=== PATIENT | female | born 1990 | race Caucasian/White ===

== ENCOUNTER → 2018-03-28 12:51 | Outpatient (CLI) | payer MEDICAID, SELFPAY ==
--- NOTE | 2018-03-28 13:30 | SATEXT_ITS ---
Assessment: Demi presents for nutritional counseling for weight management nutrition therapy in preparation for bariatric surgery at [facility]. She demonstrates that she is very motivated to complete the program and verbalizes that this procedure is a tool to her life long commitment to being healthy and maintaining a healthy weight. She reports a history of losing weight and not being able to keep it off despite working very hard with physical activity and caloric restriction. Currently she is eating a well balanced eating plan, but she does admit to having more difficulty getting enough vegetables versus fruits. Breakfast is cereal and a fruit or Serbian muffin and a fruit. Lunch is a sandwich, yogurt, fruit, granola bar. Dinner is protein, grain, vegetable and fruit. She drinks mostly water and seltzer. She states she drinks 32 oz of water daily. 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 She also has her ADLs which includes two young children as well. She is not doing any additional intentional exercise at this time. She is 67 [address] scale today. Her BMI is 48.5 kg/m2. Nutritional Diagnosis: Class 3 obesity as evidenced by BMI of 48.5 kg/m2. Intervention: Acknowledged her frustration with eating moderately sized meals and not being able to lose weight and/or gaining weight at times. We discussed possible physiologic reasons for weight gain Provided some ideas of where Demi could add more veggies in her day which would actually reduce her intake of other foods. Outlined some ideas for action plans towards Demi's goal of weight loss and preparation for bariatric surgery to help get her started with the idea of action planning. She developed the following: Monitoring and Evaluation: 1. Demi will increase her water to intake to 48 oz. per day. 2. Demi will add more vegetables to her day. 3. Will monitor her progress with her action plans. 4. Will monitor her weight and PO intake monthly. Will evaluate her nutrition care plan and adjust as needed. Thank you for the referral.
== END ==
PROVIDERS: Visit Provider Dietitian, Registered
DX: E66.01 Morbid (severe) obesity due to excess calories (principal); Z68.43 Body mass index [BMI] 50.0-59.9, adult; Z71.3 Dietary counseling and surveillance
CPT/HCPCS: 97802

== ENCOUNTER 2018-05-03 11:58 | Outpatient (CLI) | payer MEDICAID, SELFPAY ==
--- NOTE | 2018-05-03 16:00 | NS.NUTBLAN_ITS ---
Demi returns weight management nutrition therapy in preparation for bariatric surgery. She continues to demonstrate a high motivation to follow through with the program and to commit to a lifestyle of weight management. Demi increased her vegetable intake as per her action plans at her last visit. She is preparing her foods in advance. She also reports that she is eating less because of her increased vegetable intake. Demi would like to continue with this action plan and continue to improve on her water intake. Her physical activity includes her ADLs and school has started so her job is more physically active. She is 67 and 317.2 lbs. Her BMI is 48.2 kg/m2. Will continue to monitor PO intake and will evaluate progress on action plans. Will adjust nutrition care plan as needed.
== END 2018-05-03 12:18 ==
PROVIDERS: Visit Provider Dietitian, Registered
DX: E66.2 Morbid (severe) obesity with alveolar hypoventilation (principal); Z68.42 Body mass index [BMI] 45.0-49.9, adult; Z71.3 Dietary counseling and surveillance
CPT/HCPCS: 97803

== ENCOUNTER 2018-05-21 17:40 | Outpatient (REF) | payer MEDICAID, SELFPAY ==
--- NOTE | 2018-05-21 16:00 | PAPFT_PTH ---
PATIENT: Demi Quiñones LOC: [facility] U#:[id number] AGE/SX: 28/F ROOM: RE05/21/[address]: Latesha Cuba APRN : 1990 BED: DIS: 05/21/2018 SPEC #: [id number] RECD: 05/21/18 18:09 STATUS: ARABELLA RERuth #: [id number] WINDY: 05/21/18 16:[address]: Latesha Cuba DEPT: [facility] Cytology RECD BY: Sigrid Torres Tissues: 1 - CX/ENDOCX FOR PAP SMEARS Procedures: PAP THIN PREP/UVM Screening HPV DNA PROBE Comments: [id number]
== END 2018-05-21 18:00 ==
LOC: LBN 17:40
DX: Z12.4 Encounter for screening for malignant neoplasm of cervix (principal); Z11.51 Encounter for screening for human papillomavirus (HPV)
CPT/HCPCS: 88142; 87624

== ENCOUNTER 2018-05-28 16:04 | Outpatient (CLI) | payer MEDICAID, SELFPAY ==
--- NOTE | 2018-05-28 16:00 | NS.NUTBLAN_ITS ---
Demi returns for weight management nutrition therapy in preparation for bariatric surgery. She continues to maintain a lifestyle of weight management. She prepares her food in advance for school, she eats meals at a table with her family, she takes measured portions of foods. She continues to drink primarily water. 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 She is 67 and 319.1 kg. Her BMI is 48.5 kg/m2. Follow up per [facility].
== END 2018-05-28 16:24 ==
PROVIDERS: Visit Provider Dietitian, Registered
DX: E66.8 Other obesity (principal); Z68.42 Body mass index [BMI] 45.0-49.9, adult; Z71.3 Dietary counseling and surveillance
CPT/HCPCS: 97803

== ENCOUNTER 2018-06-26 12:15 | Outpatient (REF) | payer MEDICAID, SELFPAY ==
[2018-06-27 14:27] LABS: Chlamydia Result Negative; GC Result Negative; Specimen Description URINE
== END 2018-06-26 12:35 ==
LOC: LBN 12:15
PROVIDERS: Visit Provider Nurse Practitioner Women's Health
DX: Z11.3 Encounter for screening for infections with a predominantly sexual mode of transmission (principal)
CPT/HCPCS: 87491; 87591

== ENCOUNTER 2018-09-12 19:31 | Outpatient (REF) | payer MEDICAID, SELFPAY ==
[2018-09-14 10:38] LABS: Influenza B RNA Result Negative; RSV RNA Result Negative; Specimen Description NASAL
[2018-09-16 08:41] LABS: Influenza A RNA Result POSITIVE
== END 2018-09-12 19:51 ==
LOC: LBN 19:31
DX: J02.9 Acute pharyngitis, unspecified (principal); J11.1 Influenza due to unidentified influenza virus with other respiratory manifestations
CPT/HCPCS: 87449; 87631

== ENCOUNTER 2019-07-20 03:39 | Emergency (ER) | payer MEDICAID, SELFPAY ==
[2019-07-20] VITALS (8 sets, daily range): BP systolic 105–157; BP diastolic 48–68; PULSE 50–74; RESP 16–116; TEMP 35.4–36.9; O2SAT 98–99
--- NOTE | 2019-07-20 03:49 | ED.GENADUL_ITS ---
Discharge Plan Disposition Patient Disposition: HOME Condition: Good Discharge Details Chief Complaint: Nk/Back Pain Clinical Impression: Lumbago Primary Care Provider: Latesha Cuba ED Provider: Justin Pfeiffer Home Meds and New Rx's Prescriptions: New cyclobenzaprine 10 mg tablet 10 mg PO TID Qty: 14 RF: 0 acetaminophen [Mapap Extra Strength] 500 MG tablet 1,000 mg PO Q6H 5 Days Qty: 60 RF: 0 lidocaine [Lidoderm] 1 PATCH patch 1 patch Topical Q24H Qty: 4 RF: 0 No Action omeprazole 20 mg capsule,delayed release(DR/EC) 20 mg PO DAILY RF: 0 ursodiol [Actigall] 300 mg capsule 300 mg PO BID Qty: 60 RF: 6 Nexplanon 68 mg implant 1 implant SBD ONCE Qty: 1 RF: 0 multivitamin with iron tablet 1 tab PO DAILY RF: 0 cholecalciferol (vitamin D3) 2,000 unit capsule 2,000 unit PO DAILY RF: 0 mecobalamin (vitamin B12) 1,000 mcg tablet,disintegrating 1,000 mcg SL DAILY RF: 0 valacyclovir 500 MG tablet 500 mg PO BID Qty: 16 RF: 2 venlafaxine 150 mg capsule,extended release 24hr 150 mg PO DAILY Qty: 90 RF: 3 venlafaxine 75 mg capsule,extended release 24hr 75 mg PO DAILY Qty: 90 RF: 3 fluconazole [Diflucan] 150 mg tablet 150 mg PO ONCE Qty: 1 RF: 0 Discharge Instructions Instructions: Low Back Strain (ED) Additional Instructions: At this time your symptoms are secondary to a low back strain. The steroid that was given will last 2 to 3 days. Please take Tylenol, a maximum of 1000 mg every 6 hours, Flexeril as a muscle relaxant to help with the spasms, and the Lidoderm patches as directed. If your insurance does not cover the prescription 5% Lidoderm patch, you can get [id number] 4% Lidoderm patches fairly inexpensively. Please use a heating pad as frequently as possible, avoid lifting anything greater than 5 pounds for the next 1 to 2 weeks. Perform daily stretches. If you notice any worsening of your symptoms, or any new symptoms s uch as vomiting, diarrhea, fever, chills, shortness of breath, chest pain, numbness or tingling in the groin, bowel or bladder incontinence, numbness, weakness, or fainting , please return immediately to the emergency department for reevaluation. Please follow up with your primary care provider as soon as possible for reassessment and reevaluation. As always, it was a pleasure participating in your medical care today. Referrals: Latesha Cuba NP [Primary Care Provider] - Medical Decision Making This is a 29-year-old female who presents today for evaluation of back pain. Yesterday she was doing some bending and working, and had mild back soreness, then this morning/evening while sleeping she twisted during the night and had significant spasm down her left back. She denies any numbness tingling or weakness. She demonstrates no signs of bowel or bladder incontinence, she has normal rectal tone and good perirectal sensation. Reflexes are normal, good dorsiflexion of great toe. No midline spinal tenderness. No history of IV or illicit drug use, or fever chills. Signs and symptoms appear clinically consistent with musculoskeletal spasm of the back. We will treat the patient's spasm and pain, no current clinical indication for imaging at this time. No current clinical evidence of cauda equina syndrome. Will reassess after medication administration. 6 AM Patient is feeling much better, symptoms have notably improved after muscle relaxants. Signs and symptoms are clinically consistent with musculoskeletal back sprain. Recommend Lidoderm patches, Tylenol at home, Flexeril as needed. And heating pad. Discussed red flags for which to return. I have extensively reviewed the treatment plan and discharge instructions with the patient. I have addressed all patient concerns at this time. The patient was made aware of what symptoms to monitor for that would warrant a return to the emergency department. Discussed the plan with the patient, they demonstrate verbal understanding and agreement with our assessment and plan at this time. HPI General Date/Time Provider Initiated Documentation: 07/20/19 03:40 . HPI Narrative: This is a 29-year-old female with a past medical history of chronic back pain, depression, previous gastric bypass, herpes, who presents today for evaluation of back pain. She states that 2 days ago she been doing some lifting and a significant amount of bending over, she had mild back soreness since then, then this evening while she is sleeping she turned and felt a significant spasm in her back and notable increase in her pain. Pain is primarily on the left- hand side but does radiate to the right somewhat. She admits to mild burning sensation to the lateral aspects of her thighs bilaterally. She denies any numbness, tingling, bowel or bladder incontinence. She has no other complaints at this time. She denies any weakness to her lower extremities. She denies any other illicit drug use, fever or chills. Symptoms are made worse with bending and moving, improved by nothing. She did take Tylenol yesterday but this did not change anything. Related Data Home Medications Medication Instructions Recorded Confirmed valacyclovir 500 mg PO BID #16 tab-cap 05/30/17 12/23/18 etonogestrel 68 mg subdermal 1 implant SBD ONCE #1 each 06/26/18 12/23/18 implant omeprazole 20 mg capsule,delayed 20 mg PO DAILY 08/28/18 12/23/18 release ursodiol 300 mg capsule 300 mg PO BID #60 cap 08/28/18 12/23/18 cholecalciferol (vitamin D3) 50 2,000 unit PO DAILY 11/04/18 12/23/18 mcg (2,000 unit) capsule mecobalamin (vitamin B12) 1,000 1,000 mcg SL DAILY 11/04/18 12/23/18 mcg disintegrating tablet,sublingual multivitamin with iron 1 tab PO DAILY 11/04/18 12/23/18 venlafaxine 150 mg 150 mg PO DAILY #90 cap 12/24/18 capsule,extended release 24 hr fluconazole 150 mg tablet 150 mg PO ONCE #1 tab 04/17/19 venlafaxine 75 mg capsule,extended 75 mg PO DAILY #90 cap 04/17/19 release 24 hr acetaminophen [Mapap Extra 1,000 mg PO Q6H 5 Days #60 tab 07/20/19 Strength] cyclobenzaprine 10 mg PO TID #14 tab 07/20/19 lidocaine [Lidoderm] 1 patch TOPICAL Q24H #4 patch 07/20/19 Previous Rx's Medication Instructions Recorded valacyclovir 500 mg PO BID #16 tab-cap 05/30/17 etonogestrel 68 mg subdermal 1 implant SBD ONCE #1 each 06/26/18 implant ursodiol 300 mg capsule 300 mg PO BID #60 cap 08/28/18 venlafaxine 150 mg 150 mg PO DAILY #90 cap 12/24/18 capsule,extended release 24 hr fluconazole 150 mg tablet 150 mg PO ONCE #1 tab 04/17/19 venlafaxine 75 mg capsule,extended 75 mg PO DAILY #90 cap 04/17/19 release 24 hr acetaminophen [Mapap Extra 1,000 mg PO Q6H 5 Days #60 tab 07/20/19 Strength] cyclobenzaprine 10 mg PO TID #14 tab 07/20/19 lidocaine [Lidoderm] 1 patch TOPICAL Q24H #4 patch 07/20/19 Allergies Allergy/AdvReac Type Severity Reaction Status Date / Time sumatriptan Allergy Severe THROAT Verified 12/23/18 15:41 CLOSES UP Penicillins Allergy Intermediate Rash Verified 12/23/18 15:41 Everywhere Review of Systems All systems reviewed & are unremarkable except as noted in HPI and below PFSH Social History Smoking/Tobacco Use Status: Never Alcohol Intake: never Drug use: Never Substance use type: does not use Household members: other Details: 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 Pets and animals: No What type of physical activity do you participate in: walking and swimming Duration: 30-45 minutes/day Frequency: 1-2 times per week Batool/Anabaptist: No preference Special batool needs: No Seatbelt use: always Do you feel safe at home: Yes Do you feel safe in your relationship?: Yes Female Reproductive History Menstrual control method: implanted (Nexplanon inserted by Charla Medina NP [id number] EXP=10/2020) History History 2 Para 2 Hx # Term Pregnancies Multiple births Hx # Pregnancies Ectopic pregnancies AB induced Hx Number of Living Children AB spontaneous Exam Narrative Exam Narrative: 1.Const: Well-nourished, Well-developed, appearing stated age 2.Eyes: PERRL, no conjunctival injection, and symmetrical lids. 3.ENT: Atraumatic external nose and ears. Moist MM. Neck: Symmetric, trachea midline, No thyromegaly. 4.CVS: +S1/S2, No murmurs or gallops. Peripheral pulses 2+ and equal in all extremities. Brisk capillary refill in all extremities. 5.RESP: Unlabored respiratory effort. Clear to auscultation bilaterally. No wheezes rales or rhonchi 6.GI: Soft, Nontender/Nondistended, No hepatosplenomegaly. No guarding or rebound. 7.MSK: Normocephalic/Atraumatic, Extremities w/o deformity or ttp No cyanosis or clubbing, Normal movement of all extremities. No midline tenderness to palpation over the CTLS spine. She does have mild reproducible tenderness and spasm on the left paraspinal space in the lower lumbar region. Normal ROM in flexion, extension, side bend, and rotation. Patient has +5 out of 5 strength in the lower extremities in dorsiflexion and plantarflexion, knee flexion and extension, hip flexion and extension. Normal strength for dorsiflexion and plantar flexion of the great toe bilaterally. There is +2 over 2 dorsalis pedis pulses bilaterally. There is normal sensation to the skin with light touch at the foot, knee, and hip. Normal saddle sensation. Good sensation over the deep sural nerve area bilaterally. Rectal exam demonstrates normal rectal tone. Reflexes are +2 over 4 in the patellar reflex bilaterally. +5 out of 5 strength in the medial, ulnar, radial nerve distribution bilaterally in the hands as well as intact light touch sensation to these dermatomes on the hands 8.Skin: Warm, Dry. No rashes or lesions. 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 Sensation grossly intact, no focal neurol ogic deficits. 10.Psych: (AAO) x3. Appropriate mood and affect
[2019-07-20] MEDS: Acetaminophen 500 MG TAB 1000 MG PO (04:09)
[2019-07-20] MEDS: Cyclobenzaprine 10 MG TAB PO (04:10)
[2019-07-20] MEDS: Ketorolac 30 MG/ML VIAL IM (04:11)
[2019-07-20] MEDS: Lidocaine 5% Patch 1 PATCH TP (04:13)
[2019-07-20] MEDS: methylPREDNISolone SUCC 125 MG VIAL IM (04:15)
[2019-07-20] MEDS: diazePAM 10 MG/2 ML SYR 5 MG IVP (05:20)
--- NOTE | 2019-07-20 05:25 | NUR.NOTE ---
Nursing Note: Pt was still in a large amount of pain. 20g placed to L AC, and Valium 5mg given IVP over 2 min. Pt tolerated injection well. Will continue to monitor pts status.
== END 2019-07-20 06:55 | disposition home or self-care (01) ==
PROVIDERS: Emergency Provider Student in an Organized Health Care Education/Training Program
DX: S39.012A Strain of muscle, fascia and tendon of lower back, initial encounter (principal); X50.3XXA Overexertion from repetitive movements, initial encounter
CPT/HCPCS: 96372; 96374; 99284; J1885; J2930; J3360

== ENCOUNTER 2019-10-15 09:14 | Emergency (ER) | payer MEDICAID, SELFPAY ==
[2019-10-15 09:15] VITALS: BP 144/85; PULSE 109; RESP 16; TEMP 36.8; O2SAT 99
--- NOTE | 2019-10-15 09:27 | ED.GENADUL_ITS ---
Discharge Plan Disposition Patient Disposition: HOME Condition: Stable Discharge Details Chief Complaint: DentalOral Clinical Impression: Pain, dental Primary Care Provider: Latesha Cuba ED Provider: Gary Medina Home Meds and New Rx's Prescriptions: New oxycodone 5 mg tablet 5 mg PO Q6H PRN (Reason: pain) Qty: 6 RF: 0 Continued valacyclovir 500 mg tablet 500 mg PO BID PRNRF: 0 Nexplanon 68 mg implant 1 implant SBD ONCE Qty: 1 RF: 0 multivitamin with iron tablet 1 tab PO DAILY RF: 0 mecobalamin (vitamin B12) 1,000 mcg tablet,disintegrating 1,000 mcg SL DAILY RF: 0 venlafaxine 150 mg capsule,extended release 24hr 150 mg PO DAILY Qty: 90 RF: 3 venlafaxine 75 mg capsule,extended release 24hr 75 mg PO DAILY Qty: 90 RF: 3 Discharge Instructions Additional Instructions: continue to take 1000mg tylenol every 6 hours for pain as needed do not drink alcohol or drive if you take the oxycodone follow up as scheduled with the dentist tomorrow Medical Decision Making 29 yo female who is scheduled to have her left upper and lower wisdom teeth extracted tomorrow comes in with uncontrolled pain in the area of the wisdom teeth. Has been taking tylenol and unable to take nsaids but still has significant pain. 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 She has no stridor or drooling and in the mouth and there is no visible abscess or evidence of infection and finished abx on 10/05 for dental pain. Do not feel abx indicated, given her degree of pain feel short course of opiates would benefit here. Advised to f/u with dentist as scheduled tomorrow and return precautions given Differential Diagnosis Differential Diagnosis: impacted wisdom teeth, pulpitis HPI General Mode of arrival: ambulatory . Date/Time Provider Initiated Documentation: 10/15/19 09:20 . Limitations to Documentation: no limitations . Information obtained by: patient . History of Present Illness 29 year old F presents to the emergency department with the chief complaint of dental pain, described as moderate, and it has been constant. No relieving factors improve symptom(s), No exacerbating factors reported . Related Data Home Medications Medication Instructions Recorded Confirmed etonogestrel 68 mg subdermal 1 implant SBD ONCE #1 each 06/26/18 10/15/19 implant mecobalamin (vitamin B12) 1,000 1,000 mcg SL DAILY 11/04/18 10/15/19 mcg disintegrating tablet,sublingual multivitamin with iron 1 tab PO DAILY 11/04/18 10/15/19 venlafaxine 150 mg 150 mg PO DAILY #90 cap 12/24/18 10/15/19 capsule,extended release 24 hr venlafaxine 75 mg capsule,extended 75 mg PO DAILY #90 cap 04/17/19 10/15/19 release 24 hr valacyclovir 500 mg tablet 500 mg PO BID PRN tab-cap 10/01/19 10/15/19 oxycodone 5 mg PO Q6H PRN #6 tab 10/15/19 Previous Rx's Medication Instructions Recorded etonogestrel 68 mg subdermal 1 implant SBD ONCE #1 each 06/26/18 implant venlafaxine 150 mg 150 mg PO DAILY #90 cap 12/24/18 capsule,extended release 24 hr venlafaxine 75 mg capsule,extended 75 mg PO DAILY #90 cap 04/17/19 release 24 hr oxycodone 5 mg PO Q6H PRN #6 tab 10/15/19 Allergies Allergy/AdvReac Type Severity Reaction Status Date / Time sumatriptan Allergy Severe THROAT Verified 10/15/19 09:21 CLOSES UP Penicillins Allergy Intermediate Rash Verified 10/15/19 09:21 Everywhere General Stated Complaint: DentalOral [place]: 4 Review of Systems All systems reviewed & are unremarkable except as noted in HPI and below Constitutional Constitutional: Denies chills and Denies fever(s) ENT Ears, Nose, Mouth, and Throat: Denies change in voice Cardiovascular Cardiovascular: Denies chest pain and Denies dyspnea Respiratory Respiratory: Denies cough and Denies dyspnea Gastrointestinal Gastrointestinal: Denies abdominal pain, Denies nausea and Denies vomiting Genitourinary Genitourinary: Denies dysuria Musculoskeletal Musculoskeletal: Denies joint swelling Integumentary/Breasts Skin/Breast: Denies rash [facility] Social History Smoking/Tobacco Use Status: Never Alcohol Intake: never Drug use: Never Substance use type: does not use Household members: other 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: 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 Pets and animals: No What type of physical activity do you participate in: walking and swimming Duration: 30-45 minutes/day Frequency: 1-2 times per week Batool/Methodist: No preference Special batool needs: No Seatbelt use: always Do you feel safe at home: Yes Do you feel safe in your relationship?: Yes Female Reproductive History Menstrual control method: implanted (Nexplanon inserted by Charla Medina NP [id number] EXP=10/2020) History History 2 Para 2 Hx # Term Pregnancies Multiple births Hx # Pregnancies Ectopic pregnancies AB induced Hx Number of Living Children AB spontaneous Exam Const General: no acute distress Orientation: alert HENMT Head: normal to inspection Ears: external ears normal General nose exam: external nose normal Mouth: moist mucous membranes Eyes General: appearance normal, both eyes and all related structures Neck Neck: normal visual inspection Resp Effort & Inspection: normal respiratory effort and able to speak in complete sentences Cardio Rate: regular rate Skin General skin exam: no rashes or lesions noted Neuro General: alert and oriented x3 Extrem General: normal to inspection Psych Mental Status: mental status grossly normal Course Vital Signs Vital signs: Vital Signs Temperature 36.8 C 10/15/19 09:15 Pulse 109 H 10/15/19 09:15 Respiratory Rate 16 10/15/19 09:15 Blood Pressure 144/85 H 10/15/19 09:15 Pulse Oximetry 99 10/15/19 09:15 Temperature 36.8 C 10/15/19 09:15 Temperature Source Skin 10/15/19 09:15 Pulse 109 H 10/15/19 09:15 Respiratory Rate 16 10/15/19 09:15 Respiratory Effort 10/15/19 09:22 Blood Pressure 144/85 H 10/15/19 09:15 Blood Pressure Position Sitting 10/15/19 09:15 Pulse Oximetry 99 10/15/19 09:15 Oxygen Delivery Method Room Air 10/15/19 09:15 Oxygen Flow Rate 0 10/15/19 09:15 Pain Level 9 10/15/19 09:15
== END 2019-10-15 09:33 | disposition home or self-care (01) ==
LOC: ER 09:43
PROVIDERS: Emergency Provider Emergency Medicine
DX: R68.84 Jaw pain (principal)
CPT/HCPCS: 99283

== ENCOUNTER 2020-08-31 08:28 | Emergency (ER) | payer MEDICAID, SELFPAY ==
--- NOTE | 2020-08-31 08:30 | W.ED.GENAD ---
Discharge Plan Disposition Patient Disposition: HOME Condition: Stable Discharge Details Clinical Impression: Sprain of left foot, Sprain of left ankle Primary Care Provider: Latesha Cuba ED Provider: Anna Alva Home Meds and New Rx's Prescriptions: Continued Nexplanon 68 mg implant 1 implant SBD ONCE Qty: 1 RF: 0 multivitamin with iron tablet 1 tab PO DAILY RF: 0 mecobalamin (vitamin B12) 1,000 mcg tablet,disintegrating 1,000 mcg SL DAILY RF: 0 venlafaxine 75 mg capsule,extended release 24hr 75 mg PO DAILY Qty: 90 RF: 3 venlafaxine 150 mg capsule,extended release 24hr 150 mg PO DAILY Qty: 90 RF: 3 valacyclovir 500 mg tablet 500 mg PO BID PRN (Reason: Herpes outbreaks) Qty: 30 RF: 2 Discharge Instructions Instructions: Ankle Sprain (ED), Foot Sprain (ED) Additional Instructions: Rest, ice, and elevate the affected area as much as possible. Take Tylenol as needed and directed for pain. Use the crutches for ambulation over the next few days. Once the pain and swelling improves, you can bear weight on your left foot as tolerated. Follow-up with your primary care doctor in 1 week as needed. Follow-up with orthopedics if your symptoms do not improve or worsen. Return to the emergency department with any worsening or new concerning symptoms. Referrals: Gilberto Garrett MD [ [facility] STAFF PHYSICIAN] - Discharge Data Discharge Physician: Anna Alva Medical Decision Making 30-year-old female presents with left ankle and foot pain after twisting her ankle when slipping off the steps morning. There is a hematoma to the mid dorsal lateral foot with tenderness along lateral malleolus left fifth metatarsal. Neurovascular intact. No deformities. Given a dose of Tylenol and referred for x-rays which were negative. Given patient's pain and hematoma, will place in Ben wrap, ankle lace up splint and give postop shoe and crutches. Patient given orthopedic follow-up information if needed. Instructed on importance of RICE. Usual and customary return precautions given prior to discharge. Medical Records Medical records reviewed: Yes I reviewed the patient's medical records. Imaging Data Radiologic Study: Radiologist's impression: XR ANKLE LT COMPLETE and XR foot LT complete CLINICAL HISTORY: s/p twisting injury, r/o fracture TECHNIQUE: 2D digital imaging was performed. COMPARISON: No priors for comparison. FINDINGS: BONES: No acute fracture is present. No bony destructive lesion is seen. JOINTS:The ankle mortise is normally aligned. SOFT TISSUE: Normal. IMPRESSION: No acute fracture or dislocation. Findings were discussed with the emergency department on the date of the examination. HPI General Mode of arrival: ambulatory. Date/Time Provider Initiated Documentation: 08/31/20 08:29. Limitations to Documentation: no limitations. Information obtained by: patient. HPI Narrative: Pt is a 30yo F who presents to the ED with a complaint of left ankle pain after she twisted her ankle when she fell down one step while taking her puppy outside. Patient states she cannot take NSAIDs due to history of bariatric surgery. She has not yet taken anything for pain. She denies any hip or knee pain. Related Data Home Medications Medication Instructions Recorded Confirmed etonogestrel 68 mg subdermal 1 implant SBD ONCE #1 each 06/26/18 08/31/20 implant mecobalamin (vitamin B12) 1,000 1,000 mcg SL DAILY 11/04/18 08/31/20 mcg disintegrating tablet,sublingual multivitamin with iron 1 tab PO DAILY 11/04/18 08/31/20 venlafaxine 150 mg 150 mg PO DAILY #90 cap 01/13/20 08/31/20 capsule,extended release 24 hr venlafaxine 75 mg capsule,extended 75 mg PO DAILY #90 cap 01/26/20 08/31/20 release 24 hr valacyclovir 500 mg tablet 500 mg PO BID PRN #30 tab-cap 03/05/20 08/31/20 Previous Rx's Medication Instructions Recorded etonogestrel 68 mg subdermal 1 implant SBD ONCE #1 each 06/26/18 implant venlafaxine 150 mg 150 mg PO DAILY #90 cap 01/13/20 capsule,extended release 24 hr venlafaxine 75 mg capsule,extended 75 mg PO DAILY #90 cap 01/26/20 release 24 hr valacyclovir 500 mg tablet 500 mg PO BID PRN #30 tab-cap 03/05/20 Allergies Allergy/AdvReac Type Severity Reaction Status Date / Time sumatriptan Allergy Severe THROAT Verified 01/26/20 11:01 CLOSES UP Penicillins Allergy Intermediate Rash Verified 01/26/20 11:01 [address]where NSAIDS (Non-Steroidal AdvReac Gastric Unverified 08/31/20 08:38 Anti-Inflamma bipass General SHAWNEE: 4 Review of Systems All systems reviewed & are unremarkable except as noted in HPI and below PFSH Medical History (Updated 08/31/20 @ 09:37 by Anna Alva DO) Anxiety and depression (01/27/16) BMI 45.0-49.9, adult (01/27/16) Hip pain, bilateral HSV (herpes simplex virus) anogenital infection (06/07/17) Increased body mass index (BMI) Low iron Nexplanon in place PCOS (polycystic ovarian syndrome) (11/03/14) Pilonidal cyst Surgical History Gastric bypass status for obesity (08/12/18) Laproscopic Henry-en-Y Gastric [facility] (Dr. Terry) H/O section 12/2015 Incision & Drainage, Abscess or Hematoma Family History (Updated 01/27/20 @ 13:22 by Caesar Garnett) Mother Alcohol abuse Depression Father No problems noted. Sister , 2 MONTHS OLD No problems noted. Maternal Grandmother Asthma Daughter No problems noted. Daughter No problems noted. Paternal Grandfather Alcohol abuse Social History (Updated 01/27/20 @ 13:21 by Caesar Garnett) Smoking/Tobacco Use Status: Former Tobacco Use Second Hand Exposure: Yes Smoking risk assessment performed?: Yes Alcohol Intake: never Drug use: Never Substance use type: does not use Caregiver/Support person: No Household members: significant other and children Housing: apartment Communication Needs: Corrective Lenses Do you need help understanding health information?: Never current occupation: [employer] Pets and animals: Yes Pets and animals: dog(s) Sexually active: Yes Do you think of yourself as: straight/heterosexual Current gender identity: female What is your relationship status?: living with partner How often do you talk on the phone with friends or family?: three or more times per week How often do you get together with friends or relatives?: decline to answer How often do you attend muslim or confucianism services?: 1-3 times per year Do you belong to any clubs or organized social groups?: no Panel score (0-1 are the most socially isolated patients): 2 What type of physical activity do you participate in: walking and bicycling Duration: 45-60 minutes/day Frequency: 3-4 times per week Batool/Gnosticist: None Special batool needs: No Seatbelt use: always Helmet use: Yes Helmet use: always Drive intox or ride w/intox 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: No Do you feel safe at home: Yes Do you feel safe in your relationship?: Yes Female Reproductive History Menstrual control method: implanted (Nexplanon inserted by Charla Medina NP LSM=[id number] EXP=10/2020) History History 2 Para 2 Hx # Term Pregnancies Multiple births Hx # Pregnancies Ectopic pregnancies AB induced Hx Number of Living Children AB spontaneous Exam Const General: cooperative, healthy appearing and no acute distress HENMT Head: normal to inspection Mouth: oral mucosae normal Eyes General: appearance normal, both eyes and all related structures Neck Neck: normal visual inspection Resp Effort & Inspection: normal respiratory effort and able to speak in complete sentences Cardio Rate: regular rate Skin General skin exam: no rashes or lesions noted Neuro General: patient alert, patient awake and patient oriented x3 Motor: muscle tone normal throughout Other: Motor/sensory grossly intact Extrem Ankle/foot/toe images: 1. Moderate edema and ecchymosis consistent with hematoma and tenderness to palpation of left anterior lateral malleolus and left mid dorsal lateral foot. There is also tenderness to palpation to left fifth metatarsal. DP/PT pulses intact. No deformity. No open wounds. Psych Appearance: grossly normal Affect: normal affect
[2020-08-31 08:33] VITALS: BP 121/64; PULSE 98; RESP 18; TEMP 36.5; O2SAT 99
[2020-08-31] MEDS: Acetaminophen 325 MG TAB 650 MG PO (08:51)
--- NOTE | 2020-08-31 09:12 | DI.RAD_ITS ---
EXAM: XR ANKLE LT COMPLETE and XR foot LT complete CLINICAL HISTORY: s/p twisting injury, r/o fracture TECHNIQUE: 2D digital imaging was performed. COMPARISON: No priors for comparison. FINDINGS: BONES: No acute fracture is present. No bony destructive lesion is seen. JOINTS:The ankle mortise is normally aligned. SOFT TISSUE: Normal. IMPRESSION: No acute fracture or dislocation. Findings were discussed with the emergency department on the date of the examination. DATA REPOSITORY: RADIATION DOSE DELIVERED:
== END 2020-08-31 10:22 | disposition home or self-care (01) ==
PROVIDERS: Emergency Provider Physician Assistant
DX: S93.692A Other sprain of left foot, initial encounter (principal); S93.492A Sprain of other ligament of left ankle, initial encounter; S90.32XA Contusion of left foot, initial encounter; W10.8XXA Fall (on) (from) other stairs and steps, initial encounter
CPT/HCPCS: 29515; 99284; 73610; 73630; 99283

== ENCOUNTER 2021-01-10 09:18 | Emergency (ER) | payer MEDICAID, SELFPAY ==
[2021-01-10 09:21] VITALS: BP 143/98; PULSE 98; RESP 20; TEMP 36.2; O2SAT 100
[2021-01-10] MEDS: Ketorolac 60 MG/2 ML VIAL IM (10:07)
[2021-01-10] MEDS: Lidocaine 5% Patch 1 PATCH TP (10:07)
--- NOTE | 2021-01-10 10:09 | ED.GENADUL_ITS ---
Discharge Plan Disposition Patient Disposition: HOME Condition: Stable Discharge Details Clinical Impression: Back pain with radiculopathy Primary Care Provider: Latesha Cuba ED Provider: Alireza Dawson Home Meds and New Rx's Prescriptions: New cyclobenzaprine 5 mg tablet 5 mg PO TID PRNQty: 10 RF: 0 Continued Nexplanon 68 mg implant 1 implant SBD ONCE Qty: 1 RF: 0 multivitamin with iron tablet 1 tab PO DAILY RF: 0 mecobalamin (vitamin B12) 1,000 mcg tablet,disintegrating 1,000 mcg SL DAILY RF: 0 venlafaxine 75 mg capsule,extended release 24hr 75 mg PO DAILY Qty: 90 RF: 3 valacyclovir 500 mg tablet 500 mg PO BID PRN (Reason: Herpes outbreaks) Qty: 30 RF: 2 venlafaxine 150 mg capsule,extended release 24hr 150 mg PO DAILY Qty: 90 RF: 3 Discharge Instructions Instructions: Back Pain (ED) Additional Instructions: Flexeril as directed, this medication may cause drowsiness. [id number] Tylenol, 1 g every 6 hours as directed for discomfort. Gentle stretching as tolerated. Cool and/or warm compresses every 2 hours for 20 minutes. A single injection of IM Toradol was given here in the ER. Please watch for new or worsening symptoms and return to the ER for any concerns. I strongly recommend that you follow the instructions given to you by your PT team. I also recommend reaching out your primary care provider, it sounds as though you have never had an MRI of your back and that may be indicated if your symptoms persist, even possibly a referral to back specialist. Medical Decision Making 30-year-old female with history of chronic back issues feel very similar. Yesterday while moving a table she had sudden pain across her entire back that shoots down both legs. Denies fever, IV drug use, bowel or bladder incontinence, numbness, tingling, focal weakness. She cannot take oral NSAIDs. She has already seen PT and understands movement and exercises that she needs to perform. At this time I see no clear indication for emergent x-ray. Discussed options. Will IM Toradol, but first obtain and urinalysis. Clinica lly this certainly appears to musculoskeletal in nature. Patient reports intermittent spasms, will provide her with a prescription for cyclobenzaprine as well. Patient is comfortable with this plan and has no additional questions or concerns. She is neurologically intact. Urine negative. Urinalysis negative for leuk esterase, nitrates. There are 0-2 red cells, 3-5 white cells, and moderate bacteria. Urine culture is pending. Patient has no urinary symptoms. Medical Records Medical records reviewed: Yes I reviewed the patient's medical records. Lab Data Lab results reviewed: Yes I reviewed the patient's lab results. Labs: 01/10/21 09:55 Urine - Reflex from Ua Urine Culture - Pending Laboratory Tests Range/Units 01/10/21 09:55 Urine Color (Yellow) Yellow Urine Clarity (Clear) Clear Urine pH (5-8) 5.5 Ur Specific [place] (1.005-1.025) 1.015 Urine Protein (Negative) mg/dL Negative Urine Ketones (Negative) mg/dL Negative Urine Blood (Negative) Trace-lysed H Urine Nitrite (Negative) Negative Urine Bilirubin (Negative) Negative Urine Urobilinogen (Up TO 0.2) EU/dL 0.2 Ur Leukocyte Esterase (Negative) Negative Urine RBC (0-2) HPF 0-2 Urine WBC (0-5) HPF 3-5 Ur Epithelial Cells (Negative) HPF Few Urine Crystals (Negative) HPF Negative Urine Bacteria (Negative) HPF Moderate Urine Casts (Negative) LPF Negative Urine Mucus (Negative) Negative Ur Culture Indicated? Yes Urine Glucose (Negative) mg/dL Negative HPI General Mode of arrival: ambulatory . Date/Time Provider Initiated Documentation: 01/10/21 09:21 . Limitations to Documentation: no limitations . Information obtained by: patient . HPI Narrative: This is a 30-year-old female, past medical history of chronic low back pain with sciatica, obesity, status post gastric bypass, PCOS, anxiety, depression, presenting to the ER reporting exacerbation of her chronic back pain yesterday. Patient states that she has already been involved with PT, knows the exercises to perform. She has never had an MRI of her back. She reports yesterday at work she was moving a table and felt a sudden pain across her entire lower back with shooting pain down the posterior aspect of both legs. She reports that her legs feel shaky and her back to have spasms but she denies any fever, abdominal pain, bowel or bladder incontinence, numbness, tingling, weakness. She denies history of IV drug use. She has taken Tylenol with little relief. Unable to take p.o. NSAIDs because of her gastric bypass. Patient reports that the pain is moderate to severe, worse with movement. Related Data Home Medications Medication Instructions Recorded Confirmed etonogestrel 68 mg subdermal 1 implant SBD ONCE #1 each 06/26/18 01/10/21 implant mecobalamin (vitamin B12) 1,000 1,000 mcg SL DAILY 11/04/18 01/10/21 mcg disintegrating tablet,sublingual multivitamin with iron 1 tab PO DAILY 11/04/18 01/10/21 venlafaxine 75 mg capsule,extended 75 mg PO DAILY #90 cap 01/26/20 01/10/21 release 24 hr valacyclovir 500 mg tablet 500 mg PO BID PRN #30 tab-cap 03/05/20 01/10/21 venlafaxine 150 mg 150 mg PO DAILY #90 cap 12/29/20 01/10/21 capsule,extended release 24 hr cyclobenzaprine 5 mg PO TID PRN #10 tab 01/10/21 Previous Rx's Medication Instructions Recorded etonogestrel 68 mg subdermal 1 implant SBD ONCE #1 each 06/26/18 implant venlafaxine 75 mg capsule,extended 75 mg PO DAILY #90 cap 01/26/20 release 24 hr valacyclovir 500 mg tablet 500 mg PO BID PRN #30 tab-cap 03/05/20 venlafaxine 150 mg 150 mg PO DAILY #90 cap 12/29/20 capsule,extended release 24 hr cyclobenzaprine 5 mg PO TID PRN #10 tab 01/10/21 Allergies Allergy/AdvReac Type Severity Reaction Status Date / Time sumatriptan Allergy Severe THROAT Verified 01/10/21 09:24 CLOSES UP Penicillins Allergy Intermediate Rash Verified 01/10/21 09:24 Everywhere NSAIDS (Non-Steroidal AdvReac Gastric Unverified 01/10/21 09:24 Anti-Inflamma bipass General Stated Complaint: Nk/Back Pain SHAWNEE: 4 Review of Systems Constitutional Constitutional: Denies fever(s), Denies headache(s) and Denies weakness ENT Ears, Nose, Mouth, and Throat: Denies headache(s) and Denies neck pain Cardiovascular Cardiovascular: Denies chest pain and Denies dyspnea Respiratory Respiratory: Denies cough and Denies dyspnea Gastrointestinal Gastrointestinal: Denies abdominal pain, Denies fecal incontinence, Denies nausea and Denies vomiting Genitourinary Genitourinary: Denies urinary incontinence Musculoskeletal Musculoskeletal: Reports back pain, Denies deformity, Denies arthralgias, Denies neck pain, Denies numbness, Reports stiffness and Denies tingling Integumentary/Breasts Skin/Breast: Denies rash Neurologic Neurologic: Denies headache(s), Denies numbness, Denies tingling and Denies weakness COUNTS INCLUDE 234 BEDS AT THE [facility] Medical History Anxiety and depression (01/27/16) BMI 45.0-49.9, adult (01/27/16) Hip pain, bilateral HSV (herpes simplex virus) anogenital infection (06/07/17) Increased body mass index (BMI) Low iron Nexplanon in place PCOS (polycystic ovarian syndrome) (11/03/14) Pilonidal cyst Surgical History Gastric bypass status for obesity (08/12/18) Laproscopic Henry-en-Y Gastric [facility] (Dr. Terry) H/O section 12/2015 Incision & Drainage, Abscess or Hematoma Family History Mother Alcohol abuse Depression Father No problems noted. Sister , 2 MONTHS OLD No problems noted. Maternal Grandmother Asthma Daughter No problems noted. Daughter No problems noted. 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 Pets and animals: Yes Pets and animals: dog(s) Sexually active: Yes Do you think of yourself as: straight/heterosexual Current gender identity: female What is your relationship status?: living with partner How often do you talk on the phone with friends or family?: three or more times per week How often do you get together with friends or relatives?: decline to answer How often do you attend confucianism or yazidism services?: 1-3 times per year Do you belong to any clubs or organized social groups?: no Panel score (0-1 are the most socially isolated patients): 2 What type of physical activity do you participate in: walking and bicycling Duration: 45-60 minutes/day Frequency: 3-4 times per week Batool/Restorationism: None Special batool needs: No Seatbelt use: always Helmet use: Yes Helmet use: always Drive intox or ride w/intox miniature train driver: No Do you feel safe at home: Yes Do you feel safe in your relationship?: Yes Female Reproductive History Menstrual control method: implanted (Nexplanon inserted by Charla Medina NP TTU=[id number] EXP=10/2020) History History 2 Para 2 Hx # Term Pregnancies Multiple births Hx # Pregnancies Ectopic pregnancies AB induced Hx Number of Living Children AB spontaneous Exam Const General: cooperative and healthy appearing Orientation: alert, awake and oriented x3 HENMT Head: normal to inspection, normocephalic and atraumatic Eyes General: appearance normal, both eyes and all related structures Conjunctivae: conjunctivae normal Neck Neck: normal visual inspection, full ROM, trachea midline and supple Resp Effort & Inspection: normal respiratory effort and able to speak in complete sentences Auscultation: clear to auscultation bilaterally Cardio Rate: regular rate Rhythm: regular rhythm GI Inspection: large pannus and obesity Palpation: soft and nontender Back/Spine/Pelvis Back: no CVA tenderness and back tenderness Thoracic/Lumbar Spine: straight leg raise positive (Bilaterally, 5 degrees) Pelvis: no pain with anterior-posterior compression and no pain with lateral compression Back/spine/pelvis image: 1. Diffuse mild discomfort. There is no midline point tenderness, erythema, ecchymosis, induration or fluctuance. I do not appreciate any active spasming. Skin General skin exam: no rashes or lesions noted Neuro General: patient alert, patient awake, moves all extremities and no focal motor deficits Cognition: normal cognition Speech: speech normal Gait: antalgic (Slow, steady gait) Motor: muscle tone normal throughout and strength 5/5 throughout Sensory Exam: no sensory deficits noted Other: 5-5 dorsi and plantar flexion of bilateral feet. Normal dorsalis pedal pulse. Psych Appearance: grossly normal Mental Status: mental status grossly normal Course Vital Signs Vital signs: Vital Signs Temperature 36.2 C L 01/10/21 09:21 Pulse 98 H 01/10/21 09:21 Respiratory Rate 01/10/21 09:21 Blood Pressure 143/98 H 01/10/21 09:21 Pulse Oximetry 100 01/10/21 09:21 Temperature 36.2 C L 01/10/21 09:21 Temperature Source Skin 01/10/21 09:21 Pulse 98 H 01/10/21 09:21 Respiratory Rate 01/10/21 09:21 Respiratory Effort Non-Labored 01/10/21 09:26 Blood Pressure 143/98 H 01/10/21 09:21 Blood Pressure Position Sitting 01/10/21 09:21 Pulse Oximetry 100 01/10/21 09:21 Oxygen Delivery Method Room Air 01/10/21 09:21 Oxygen Flow Rate 0 01/10/21 09:21 Pain Level 10 01/10/21 10:07 Lab/Test Results Lab/Test Results: POC- Test(urine) Negative
[2021-01-10 10:15] LABS: Bilirubin Negative (Negative); Blood Trace-lysed (Negative); Clarity Clear (Clear); Glucose Negative (Negative); Ketones Negative (Negative); Leukocyte Esterase Negative (Negative); Nitrite Negative (Negative); Specific Gravity 1.015 (1.005-1.025); Urobilinogen 0.2 EU/dL (Up TO 0.2); pH 5.5 (5-8)
[2021-01-10 10:29] LABS: RBC 0-2 HPF (0-2)
[2021-01-10 10:30] LABS: Bacteria Moderate HPF (Negative); C & S Indicated? Yes; Casts Negative LPF (Negative); Crystals Negative HPF (Negative); Epithelial Cells Few HPF (Negative); Mucus Negative (Negative)
== END 2021-01-10 10:45 | disposition home or self-care (01) ==
PROVIDERS: Emergency Provider Physician Assistant
DX: M54.16 Radiculopathy, lumbar region
CPT/HCPCS: 81025; 96372; 99284; 81003; 81015; 87086; 99283; J1885

== ENCOUNTER 2021-01-25 01:05 | Outpatient (CLI) | payer MEDICAID, SELFPAY ==
--- NOTE | 2021-01-25 15:30 | DI.MRI_ITS ---
Exam(s) MR LUMBAR SPINE WO EXAM: MR LUMBAR SPINE WO CLINICAL HISTORY: repeated low back pain within 6 months,WITH RADICULOPATHY,M54.10,M54.5. TECHNIQUE: Multiplanar multisequence MRI was performed. COMPARISON: No exams were available for comparison FINDINGS: MR examination lumbosacral spine was performed according to the usual protocol. No significant bony signal abnormality is seen. The conus medullaris appears intact. No significant findings from T11-12 through L2-3. There is a mild disc bulge and probable tiny annular disc tear at L 3 4. Disc contour is asymmetrica l to the left probably indicating a mild broad-based left-sided disc herniation at this level. No ce ntral canal spinal stenosis or neural foraminal stenosis seen. At L4-5, there is a large disc herniation which occupies up to 50 percent of spinal canal cross-secti onal area. This is central and broad-based. No neural foraminal stenosis seen. No significant findings at L5-S1. IMPRESSION: Large broad-based disc herniation at L4-5 with marked compression of the thecal sac at this level. Mild broad-based disc herniation at L3-4 predominantly left paracentral. There could be neural imping ement of the L4 nerve root on the left at this level. DATA REPOSITORY:
== END 2021-01-25 01:25 ==
DX: M54.16 Radiculopathy, lumbar region (principal); M54.5 Low back pain; M51.16 Intervertebral disc disorders with radiculopathy, lumbar region
CPT/HCPCS: 72148

== ENCOUNTER 2021-11-25 19:21 | Outpatient (REF) | payer MEDICAID, SELFPAY | END 2021-11-25 19:22 | disposition home or self-care (01) | LOC: LBN 19:21 | PROVIDERS: Visit Provider Nurse Practitioner Family | DX: N39.0 Urinary tract infection, site not specified (principal) | CPT/HCPCS: 87086; 87186 ==

== ENCOUNTER 2022-07-18 21:37 | Outpatient (REF) | payer MEDICAID, SELFPAY | END 2022-07-18 21:38 | disposition home or self-care (01) | LOC: LBN 21:37 | PROVIDERS: PCP Nurse Practitioner Family; Visit Provider Nurse Practitioner Family | DX: R30.9 Painful micturition, unspecified (principal); R82.998 Other abnormal findings in urine | CPT/HCPCS: 87077; 87086; 87186 ==

== ENCOUNTER 2022-09-01 11:21 | Outpatient (REF) | payer MEDICAID, SELFPAY | END 2022-09-01 11:22 | disposition home or self-care (01) | LOC: LBN 11:21 | PROVIDERS: PCP Nurse Practitioner Family; Visit Provider Nurse Practitioner Family | DX: N39.0 Urinary tract infection, site not specified (principal) | CPT/HCPCS: 87077; 87086; 87186 ==

== ENCOUNTER 2022-09-21 01:00 | Outpatient (CLI) | payer MEDICAID, SELFPAY ==
--- NOTE | 2022-09-21 07:45 | DI.RAD_ITS ---
Exam(s) XR KNEE LT 3V AP,LAT,KATHERYN EXAM: XR KNEE LT 3V AP,LAT,KATHERYN CLINICAL HISTORY: lt knee pain, m25.562. TECHNIQUE: 2D digital imaging was performed. COMPARISON: No exams were available for comparison FINDINGS: 3 views there is no evidence of fracture or obvious joint effusion. bone density is normal. no osseous lesi ons. no degenerative changes. no osteochondral defects. IMPRESSION: No significant osseous findings in the left knee DATA REPOSITORY: RADIATION DOSE DELIVERED:
== END 2022-09-21 01:20 ==
LOC: DI 01:01
PROVIDERS: PCP Nurse Practitioner Family; Visit Provider Nurse Practitioner Family
DX: M25.562 Pain in left knee (principal)
CPT/HCPCS: 73562

== ENCOUNTER → 2023-12-24 02:29 | Outpatient (CLI) | payer MEDICAID, SELFPAY ==
--- NOTE | 2023-12-24 07:15 | DI.MRI_ITS ---
Exam(s) MR LUMBAR SPINE WO EXAM: MR LUMBAR SPINE WO CLINICAL HISTORY: new onset unprovoked falls,FREQUENT,LUMBAR DISC HERNIATION,R29.6,M51.15. TECHNIQUE: Multiplanar multisequence MRI of the Lumbar spine was performed. COMPARISON: MR MR LUMBAR SPINE WO from 01/25/2021 FINDINGS: Conus medullaris is at normal level. There is no evidence of conus mass nor subjacent clumping of in trathecal nerve roots to suggest arachnoiditis. The distal thecal sac appears unremarkable.There is no evidence of Tarlov intrasacral cysts nor other significant findings within the sacral canal Bones:There are no fractures nor ominous osseous lesions in the lumbar vertebral bodies and visualize d sacrum. With respect to the individual levels... T12-L1: Unremarkable L1-2: Normal disc height and signal. No disc herniation nor central canal stenosis.No foraminal steno sis L2-3: Normal disc height. No disc herniation nor central canal stenosis.No foraminal stenosis.No face t arthropathy. L3-4: Normal disc height but moderately decreased disc hydration signal again noted. Again noted is a left paracentral-posterolateral disc herniation which is superimposed upon asymmetric left-sided an nular bulging. This compresses the anterior-left side of the thecal sac and left lateral recess at t his level. This disc protrusion has slightly increased in size. It extends into the floor of the ex iting left neural foramen but there is only minimal foraminal stenosis. No foraminal stenosis on the opposite side. No facet arthropathy L4-5: This level exhibits moderate disc space narrowing and Modic type 2 sub endplate fatty marrow ch anges and there is again noted a prominent disc herniation superimposed upon annular bulging. This l arge disc herniation has changed in size from the 2020 MRI study. This disc herniation is central an d right paracentral and occupies the right lateral recess in addition to compressing the thecal sac. There is some annular bulging in the floor of the exiting right neural foramen with mild right-sided foraminal stenosis noted but not changed from previous. There is also some annular bulging in the f elizabeth of the exiting left neural foramen, similar to previous. No significant left-sided foraminal st enosis. No facet arthropathy. L5-S1: Normal disc height and signal. No disc herniation or canal stenosis. No foraminal stenosis. No facet arthropathy. Soft tissues: paraspinal soft tissues appear unremarkable. IMPRESSION: 1. When compared to the prior MRI study of January 2021 there are disc herniations at L3-4 and L4-5 leve ls again noted, as described above. 2. The larger disc herniation at L4-5 level appears unchanged 3. The smaller disc herniation at L3-4 level appears to have slightly increased in size 4. No facet arthropathy evident in the lumbar spine. DATA REPOSITORY:
== END ==
PROVIDERS: PCP Nurse Practitioner Family; Visit Provider Nurse Practitioner Family
DX: M51.16 Intervertebral disc disorders with radiculopathy, lumbar region (principal); R29.6 Repeated falls
CPT/HCPCS: 72148

== ENCOUNTER 2023-12-24 16:57 | Outpatient (CLI) | payer MEDICAID, SELFPAY ==
[2023-12-24 10:53] LABS: HCT 38.4 % (36.0-46.0); HGB 12.7 g/dL (11.2-15.7); MCH 30.3 pg (27.0-33.0); MCHC 33.1 % (32.0-36.0); MCV 92 fL (80-95); Platelet Count 253 10^3/uL (130-400); RBC 4.19 10^6/uL (3.93-5.22); RDW 14.5 % (11.7-14.6); RDW-SD 48.8 fL; WBC 5.44 10^3/uL (4.4-10.8)
[2023-12-24 12:56] LABS: Iron 55 ug/dL (50-170); Total Iron Binding Capacity 428 ug/dL (250-450)
[2023-12-24 13:22] LABS: Vitamin D 25 Total 24.3 ng/mL (30-100)
[2023-12-24 13:52] LABS: ALT 19 U/L (14-59); AST 15 U/L (15-37); Albumin 3.7 g/dL (3.4-5.0); Alkaline Phosphatase 57 U/L (46-116); Anion Gap 4.8 mmol/L (3-11); BUN 10 mg/dL (7-18); Bilirubin, Total 0.3 mg/dL (0.2-1.0); CO2 30.2 mmol/L (21.0-32.0); CREATININE 0.8 mg/dL (0.55-1.02); Calcium 8.7 mg/dL (8.5-10.1); Calculated LDL 78 mg/dL (<100); Chloride 106 mmol/L (98-107); Cholesterol 163 mg/dL (<200); Estimated GFR 99.09 (mL/min/1.73m2); Ferritin 10 ng/mL (8-252); Glucose 82 mg/dL (74-106); HDL Cholesterol 75 mg/dL (40-60); Potassium 3.8 mmol/L (3.5-5.1); Sodium 141 mmol/L (136-145); Total Protein 7.4 g/dL (6.4-8.2); Triglyceride 53 mg/dL (<150); Vitamin B12 381 pg/mL (193-986)
[2023-12-24 14:26] LABS: FREE T4 0.81 ng/dL (0.76-1.46)
[2023-12-24 17:49] LABS: Parathyroid Hormone,Intact 92 pg/mL (19-88)
[2023-12-26 12:16] LABS: Copper, Serum 89 mcg/dL (77-206)
[2023-12-26 12:17] LABS: Zinc, S 62 mcg/dL (60-106)
[2023-12-27 02:07] LABS: Free Retinol (Vitamin A) 29.8 mcg/dL (32.5-78.0)
== END 2023-12-24 16:58 | disposition home or self-care (01) ==
LOC: LBO 16:58
PROVIDERS: PCP Nurse Practitioner Family; Visit Provider Nurse Practitioner Family
DX: Z98.84 Bariatric surgery status (principal)
CPT/HCPCS: 36415; 80053; 80061; 82306; 82525; 84630; 85027; 82607; 82728; 83540; 83550; 83970; 84439; 84443; 84590

== ENCOUNTER → 2024-01-24 10:44 | Outpatient (CLI) | payer MEDICAID, SELFPAY ==
--- NOTE | 2024-01-24 | DI.MRI_ITS ---
Exam(s) MR PELVIS WO/W EXAM: MR PELVIS WO/W CLINICAL HISTORY: LUMBAR BACK PAIN W/RADICULOPATHY M54.16, LARGER FOV TO COVER TOP ILIAC TECHNIQUE: Multiplanar multisequence MRI of the pelvis was performed. CONTRAST MATERIAL: IV Contrast: 20 mL of Dotarem contrast administered. COMPARISON: MR MR LUMBAR SPINE WO from 12/24/2023 FINDINGS: There is patient motion artifact. Urinary bladder: Unremarkable. Peritoneum: There is a small amount of free fluid in the cul-de-sac which is likely physiologic. Reproductive organs: The uterus and vagina are grossly unremarkable. The right ovary is unremarkable . There is a 2.7 x 4.0 cm left ovarian simple cyst. Bowel: Within the limits of the examination, bowel is grossly unremarkable. Aorta and iliacs: Unremarkable. Soft Tissues: Unremarkable. Bone: There again seen disc herniations at L3-4 and L4-L5 with a similar appearance to the recent MRI of the lumbar spine dated 12/24/2023. Marrow signal is within normal limits. Lymph Nodes: Unremarkable. IMPRESSION: 1. 2.7 x 4.0 cm simple left ovarian cyst. This is likely physiologic. 2. Trace amount of free fluid in cul-de-sac which is likely physiologic. 3. Stable L3-4 and L4-5 disc herniations as were seen on the MRI of the lumbar spine from 12/24/2023. 4. No acute pelvic abnormality. DATA REPOSITORY:
[2024-01-24] MEDS: Normal Saline Flush 10 ML SYR IVP (09:34)
[2024-01-24] MEDS: Gadoterate meglumine 20 ML SYRINGE IVP (09:36)
== END ==
PROVIDERS: PCP Nurse Practitioner Family; Visit Provider Physician Assistant Medical
DX: M51.36 Other intervertebral disc degeneration, lumbar region (principal); N83.292 Other ovarian cyst, left side
CPT/HCPCS: 72197

== ENCOUNTER 2024-02-11 09:49 | Outpatient (REF) | payer MEDICAID, SELFPAY ==
--- NOTE | 2024-02-11 09:30 | PAPFT_PTH ---
PATIENT: Demi Quiñones LOC: [facility] U#:[id number] AGE/SX: 34/F ROOM: RE02/11/[address]: Myrtle Medina NP : 1990 BED: DIS: 02/11/2024 SPEC #: [id number] RECD: 02/11/24 12:57 STATUS: ARABELLA RERuth #: [id number] WINDY: 02/11/24 09:[address]: Myrtle Medina NP DEPT: [facility] Cytology RECD BY: Sigrid Torres ENTERED: 02/11/24 12:58 SP TYPE: PAPFT OTHR DR: Mervin Huizar DNP Tissues: 1 - CX/ENDOCX FOR PAP SMEARS Procedures: PAP THIN PREP/UVM Screening HPV DNA PROBE Comments: [id number]
== END 2024-02-11 09:50 | disposition home or self-care (01) ==
LOC: LBN 09:49
PROVIDERS: PCP Nurse Practitioner Family; Visit Provider Nurse Practitioner Women's Health
DX: Z12.4 Encounter for screening for malignant neoplasm of cervix (principal); Z11.51 Encounter for screening for human papillomavirus (HPV)
CPT/HCPCS: 88142; 87624

== ENCOUNTER 2024-11-25 23:17 | Emergency (ER) | payer MEDICAID, SELFPAY ==
[2024-11-25 23:21] VITALS: BP 108/60; PULSE 95; RESP 16; TEMP 36.2; O2SAT 98
[2024-11-25 23:44] VITALS: BP 98/65; PULSE 92; O2SAT 93
[2024-11-25 23:45] VITALS: BP 99/67; PULSE 93; O2SAT 92
[2024-11-25 23:46] VITALS: PULSE 90; O2SAT 92
[2024-11-25] MEDS: Metoclopramide 10 MG/2 ML VIAL IVP (23:46)
[2024-11-25] MEDS: Normal Saline 1,000 ML 1000 ML IV (23:48)
[2024-11-25 23:50] VITALS: PULSE 100; O2SAT 100
[2024-11-25 23:51] LABS: Abs Immature Grans 0.04 10^3/uL (0.0-0.06); Absolute Basophil Count 0.03 10^3/uL (0.0-0.2); Absolute Eosinophil Count 0.07 10^3/uL (0.0-0.7); Absolute Lymphocyte Count 2.88 10^3/uL (1.2-3.4); Absolute Monocyte Count 0.57 10^3/uL (0.1-0.8); Absolute Neutrophil Count 2.61 10^3/uL (1.2-6.7); Basophils % 0.5 %; Eosinophils % 1.1 %; HGB 13.4 g/dL (11.2-15.7); Immature Grans % 0.6 %; Lymphocytes % 46.5 %; MCH 30.2 pg (27.0-33.0); MCHC 34.4 % (32.0-36.0); MCV 88 fL (80-95); MPV 10.8 fL (8.0-11.0); Monocytes % 9.2 %; Neutrophils % 42.1 %; Platelet Count 310 10^3/uL (130-400); RBC 4.44 10^6/uL (3.93-5.22); RDW-SD 47.9 fL
[2024-11-25 23:55] VITALS: PULSE 92; O2SAT 99
[2024-11-26] VITALS (47 sets, daily range): BP systolic 81–105; BP diastolic 44–65; PULSE 75–102; RESP 10–28; O2SAT 94–100
--- NOTE | 2024-11-26 | RT.EKG_ITS ---
APPROVED REPORT Exam: Resting ECG Reason for Exam: hypokalemia Patient Location: E HR:85 bpm ECG Measurements Heart Rate 85 AXIS ND 192 P 57 QRSd 97 QRS 43 QT 389 T 55 QTc 462 Conclusion Sinus rhythm...normal P axis, V-rate 60- 99 Low voltage, precordial leads...precordial leads <1.0mV appropriate intervals no ST segment or T wave abnormalities to suggest occlusive CT
[2024-11-26 00:04] LABS: ALT 26 U/L (14-59); AST 17 U/L (15-37); Albumin 3.7 g/dL (3.4-5.0); Alkaline Phosphatase 51 U/L (46-116); Anion Gap 8.6 mmol/L (3-11); BUN 16 mg/dL (7-18); Bilirubin, Total 0.3 mg/dL (0.2-1.0); CO2 27.4 mmol/L (21.0-32.0); CREATININE 0.7 mg/dL (0.55-1.02); Calcium 9.1 mg/dL (8.5-10.1); Chloride 107 mmol/L (98-107); Estimated GFR 115.59 (mL/min/1.73m2); Glucose 108 mg/dL (74-106); HCG Qual (Serum) Negative; Sodium 143 mmol/L (136-145); Total Protein 7.3 g/dL (6.4-8.2)
[2024-11-26 00:07] LABS: Potassium 2.8 mmol/L (3.5-5.1)
[2024-11-26] MEDS: POTASSIUM CHLORIDE 20 MEQ/100 ML BAG 50 MEQ IV_INF ×2 (00:13→02:23)
[2024-11-26 00:48] LABS: Potassium 3.4 mmol/L (3.5-5.1)
[2024-11-26 03:06] LABS: Potassium 3.7 mmol/L (3.5-5.1)
--- NOTE | 2024-11-26 03:11 | ED.GENADUL_ITS ---
Discharge Plan Disposition Patient Disposition: Home Condition: Good Discharge Details Clinical Impression: Vomiting, Influenza Primary Care Provider: Mervin Heredia ED Provider: Meghan Marcano Home Meds and New Rx's Prescriptions: New metoclopramide HCl [Reglan] 10 mg tablet 10 mg PO Q6H PRNQty: 10 0RF Continued venlafaxine 75 mg capsule,extended release 24hr 75 mg PO DAILY Qty: 90 4RF Rx Instructions: to be taken with the 150 mg dose for a ttd of 225 mg linaclotide 72 mcg capsule 72 mcg PO DAILY Qty: 30 0RF semaglutide (weight loss) 1.7 mg/0.75 mL pen injector 1.7 mg subcut QWEEK Qty: 3 0RF valacyclovir 500 mg tablet 500 mg PO BID PRN (Reason: Herpes outbreaks) Qty: 30 2RF Rx Instructions: take one tablet twice daily for 3 days during herpes outbreak. venlafaxine 150 mg capsule,extended release 24hr 150 mg PO DAILY Qty: 90 3RF Rx Instructions: Take with 75mg Venlafaxine ER for total of 225mg QD Discontinued ondansetron 4 mg tablet,disintegrating 4 mg PO Q6H PRN (Reason: nausea and vomiting) Qty: 60 0RF Discharge Instructions Instructions: Serotonin syndrome, Flu, Adult ED, Nausea and vomiting in adults Additional Instructions: Stop taking zofran. Start taking metoclopramide 10mg up to every 6 hours as needed for vomiting. This medication and your venlafaxine both affect serotonin levels. A rare side effect of these medications is serotonin syndrome which can be fatal- please seek medication attention if you develop tremors, abnormal eye movements, muscle spasms, severe anxiety, sweating, or palpitations. Call your primary care doctor in the morning to schedule an appointment to be seen within 72 hours to followup on your visit today. Discuss with your doctor your low potassium level here, and whether or not you should continue taking semaglutide while you are unwell. Return to the emergency department for new or worsening symptoms including if you are unable to keep down fluids, continue vomiting frequently, feel like you are going to pass out, develop abdominal pain, or if you have any other concerns. Stand Alone Forms: Work Release Referrals: Mervin Heredia, [employer] [Primary Care Provider] - [facility] General Mode of arrival: ambulatory . Date/Time Provider Initiated Documentation: 11/25/24 23:19 . Limitations to Documentation: no limitations . Information obtained by: patient . HPI Narrative: 34yo F with hx of gastric bypass, on weekly semaglutide last 4 days ago, flu B positive on 11/19/24, presenting for vomiting. Has been taking zofran which was initially working but this evening she has been unable to keep fluids. Non bloody non bilious emesis. 3-4 episodes of emesis this evening and frequent dry heaving. No change in bowel habits. Has had diffuse abdominal pain which is present mostly when she is actively vomiting; no pain currently. She is otherwise in her usual state of health with no fevers, chills, rash, dysuria, hematuria, shortness of breath, or other concerns. Related Data Home Medications ?Medication ?Instructions ?Recorded ?Confirmed valacyclovir 500 mg tablet 500 mg PO BID PRN Herpes outbreaks 03/05/20 11/25/24 #30 tab-caps venlafaxine 75 mg capsule,extended 75 mg PO DAILY #90 caps 05/02/24 11/25/24 release 24 hr venlafaxine 150 mg 150 mg PO DAILY #90 caps 05/30/24 11/25/24 capsule,extended release 24 hr linaclotide 72 mcg capsule 72 mcg PO DAILY #30 caps 10/31/24 11/25/24 semaglutide (weight loss) 1.7 1.7 mg (0.75 mL) subcut QWEEK #3 mL 10/31/24 11/25/24 mg/0.75 mL subcutaneous pen injector metoclopramide HCl 10 mg tablet 10 mg PO Q6H PRN #10 tabs 11/26/24 (Reglan) Previous Rx's ?Medication ?Instructions ?Recorded valacyclovir 500 mg tablet 500 mg PO BID PRN Herpes outbreaks 03/05/20 #30 tab-caps venlafaxine 75 mg capsule,extended 75 mg PO DAILY #90 caps 05/02/24 release 24 hr venlafaxine 150 mg 150 mg PO DAILY #90 caps 05/30/24 capsule,extended release 24 hr linaclotide 72 mcg capsule 72 mcg PO DAILY #30 caps 10/31/24 semaglutide (weight loss) 1.7 1.7 mg (0.75 mL) subcut QWEEK #3 mL 10/31/24 mg/0.75 mL subcutaneous pen injector metoclopramide HCl 10 mg tablet 10 mg PO Q6H PRN #10 tabs 11/26/24 (Reglan) Allergies Allergy/AdvReac Type Severity Reaction Status Date / Time sumatriptan Allergy Severe THROAT Verified 11/25/24 23:29 CLOSES UP Penicillins Allergy Intermediate Rash Verified 11/25/24 23:29 [address] amoxicillin Allergy Hives Verified 11/25/24 23:29 NSAIDS (Non-Steroidal AdvReac Gastric Verified 11/25/24 23:29 Anti-Inflamma bipass General Stated Complaint: Nausea/Vomit/Diar SHAWNEE: 3 Review of Systems Narrative: see HPI Exam Narrative Exam Narrative: General: Alert, well appearing, well nourished, in no acute distress. Head: Normocephalic, atraumatic Neck: Trachea midline, ?Neck supple. ENT: ?Slightly dry MM.? No oropharygeal lesions or exudate. Cardiac: ?RRR, no murmurs appreciated Resp: No respiratory distress. CTAB. Abd: ?Soft, non-distended, nontender : ?No suprapubic tenderness. Extremities: ?No deformities.? No peripheral edema. Neurologic: GCS 15. ? Moves all extremities freely against gravity Course Vital Signs Vital signs: Vital Signs Temperature 36.2 C L 11/25/24 23:21 Pulse 95 H 11/25/24 23:21 Respiratory Rate 16 11/25/24 23:21 Blood Pressure 108/60 11/25/24 23:21 Pulse Oximetry 98 11/25/24 23:21 Temperature 36.2 C L 11/25/24 23:21 Temperature Source Temporal Artery Scan 11/25/24 23:21 Pulse 89 11/26/24 02:20 Respiratory Rate 28 H 11/26/24 02:35 Blood Pressure 98/59 L 11/26/24 02:15 Pulse Oximetry 100 11/26/24 02:20 Oxygen Delivery Method Room Air 11/25/24 23:21 Oxygen Flow Rate 0 11/25/24 23:21 Pain Level 3 11/25/24 23:21 Lab/Test Results Lab/Test Results: Laboratory Tests Range/Units 11/25/24 11/26/24 11/26/24 23:32 00:36 02:52 WBC (4.4-10.8) 10^3/uL 6.20 RBC (3.93-5.22) 10^6/uL 4.44 Hgb (11.2-15.7) g/dL 13.4 Hct (36.0-46.0) % 39.0 MCV (80-95) fL 88 MCH (27.0-33.0) pg 30.2 MCHC (32.0-36.0) % 34.4 RDW (11.7-14.6) % 15.0 H Plt Count (130-400) 10^3/uL 310 MPV (8.0-11.0) fL 10.8 Immature Gran % % 0.6 Neutrophils % % 42.1 Lymphocytes % % 46.5 Monocytes % % 9.2 Eosinophils % % 1.1 Basophils % % 0.5 Nucleated RBC % (0.0-0.3) % 0.0 Absolute Neutrophils (1.2-6.7) 10^3/uL 2.61 Absolute Lymphocytes (1.2-3.4) 10^3/uL 2.88 Absolute Monocytes (0.1-0.8) 10^3/uL 0.57 Absolute Eosinophils (0.0-0.7) 10^3/uL 0.07 Absolute Basophils (0.0-0.2) 10^3/uL 0.03 Sodium (136-145) mmol/L 143 Potassium (3.5-5.1) mmol/L 2.8 L* 3.4 L 3.7 Chloride (98-107) mmol/L 107 Carbon Dioxide (21.0-32.0) mmol/L 27.4 Anion Gap (3-11) mmol/L 8.6 BUN (7-18) mg/dL 16 Creatinine (0.55-1.02) mg/dL 0.7 Est GFR (CKD-EPI 2020) (mL/min/1.73m2) 115.59 Glucose (74-106) mg/dL 108 H Calcium (8.5-10.1) mg/dL 9.1 Total Bilirubin (0.2-1.0) mg/dL 0.3 AST (15-37) U/L 17 ALT (14-59) U/L 26 Alkaline Phosphatase (46-116) U/L 51 Total Protein (6.4-8.2) g/dL 7.3 Albumin (3.4-5.0) g/dL 3.7 Serum HCG, Qual Negative Medical Decision Making 34yo F with hx of gastric bypass, on weekly semaglutide last 4 days ago, flu B positive on 11/19/24, presenting for vomiting. Borderline tachycardiac on arrival; vital signs otherwise reassuring. Benign abdominal exam. Not suggestive of bowel obstruction, appendicitis, cholecystitis, choledocolithiasis, mesenteric ischemia, or other surgical intrabdominal pathology; would no get CT scan at this time. With history of gastric bypass, would consider CT of vomiting refractory to treatment. Will give 1L IVFB and try reglan for symptoms. -Labs reviewed as below, serum preg negative, CBC reassuring with no leukocytosis or anemia, CMP with hypokalemia to 2.8. Confirmatory K ordered as well as IV replacement; will try PO replacement once symptoms better controlled. -EKG SR, appropriate intervals, no ST segment or T wave abnormalities to suggest occlusive ND, no concerning sequlaea of hypokalemia. -Confirmatory K 3.4, however was obtained about 20 minutes after IV potassium w as started. ? incorrect initial value vs contamination from line though adequate waste was reportedly performed. Will continue 1st 20meQ replacement and then send third K. PO challenged and tolerated well. Repeat potassium 3.7; remainder of replacement dced. Patient reports feeling much better and requests discharge home. Will discharge on short course of reglan and advise close PCP followup. Given that she is on venlafaxine, symptoms of serotonin syndrome reviewed. Discharged home; discharge instructions and return precautions were reviewed with patient who verbalized understanding. All questions were answered and she is in full agreement with the plan. Lab Data Lab results reviewed: Yes I reviewed the patient's lab results. Labs: Laboratory Tests Range/Units 11/25/24 11/26/24 11/26/24 23:32 00:36 02:52 WBC (4.4-10.8) 10^3/uL 6.20 RBC (3.93-5.22) 10^6/uL 4.44 Hgb (11.2-15.7) g/dL 13.4 Hct (36.0-46.0) % 39.0 MCV (80-95) fL 88 MCH (27.0-33.0) pg 30.2 MCHC (32.0-36.0) % 34.4 RDW (11.7-14.6) % 15.0 H Plt Count (130-400) 10^3/uL 310 MPV (8.0-11.0) fL 10.8 Immature Gran % % 0.6 Neutrophils % % 42.1 Lymphocytes % % 46.5 Monocytes % % 9.2 Eosinophils % % 1.1 Basophils % % 0.5 Nucleated RBC % (0.0-0.3) % 0.0 Absolute Neutrophils (1.2-6.7) 10^3/uL 2.61 Absolute Lymphocytes (1.2-3.4) 10^3/uL 2.88 Absolute Monocytes (0.1-0.8) 10^3/uL 0.57 Absolute Eosinophils (0.0-0.7) 10^3/uL 0.07 Absolute Basophils (0.0-0.2) 10^3/uL 0.03 Sodium (136-145) mmol/L 143 Potassium (3.5-5.1) mmol/L 2.8 L* 3.4 L 3.7 Chloride (98-107) mmol/L 107 Carbon Dioxide (21.0-32.0) mmol/L 27.4 Anion Gap (3-11) mmol/L 8.6 BUN (7-18) mg/dL 16 Creatinine (0.55-1.02) mg/dL 0.7 Est GFR (CKD-EPI 2020) (mL/min/1.73m2) 115.59 Glucose (74-106) mg/dL 108 H Calcium (8.5-10.1) mg/dL 9.1 Total Bilirubin (0.2-1.0) mg/dL 0.3 AST (15-37) U/L 17 ALT (14-59) U/L 26 Alkaline Phosphatase (46-116) U/L 51 Total Protein (6.4-8.2) g/dL 7.3 Albumin (3.4-5.0) g/dL 3.7 Serum HCG, Qual Negative Quality:SDOH Health Related Social Needs: No Data to Display PFSH All Active Problems (Updated 11/26/24 @ 03:12 by Meghan Marcano MD) Influenza (Acute) Vomiting (Acute) Chronic constipation (Acute) External hemorrhoids without complication (Acute) Foot lesion (Acute) Right Encounter for annual physical exam (Acute) Lumbar disc herniation with radiculopathy (Acute) 12/2020 MRI: Large broad-based disc herniation at L4-5 with marked compression of the thecal sac at this level. Mild broad-based disc herniation at L3-4 predominantly left paracentral. There could be neural impingement of the L4 nerve root on the left at this level. Hip pain, bilateral (Acute) Low iron (Acute) Pain, dental (Acute) Status post incision and drainage (Acute) Back pain at L4-L5 level (Chronic) Increased body mass index (BMI) (Chronic) Gastric bypass status for obesity (Acute 08/12/18) [facility] [place] HSV (herpes simplex virus) anogenital infection (Chronic 06/07/17) Anxiety and depression (Chronic 01/27/16) Medical History Left knee pain Frequent falls Weakness Dysuria Back pain with radiculopathy Lumbago PCOS (polycystic ovarian syndrome) (11/03/14) BMI 45.0-49.9, adult (01/27/16) Pilonidal cyst Surgical History H/O section 12/2015 Incision & Drainage, Abscess or Hematoma Family History Mother Alcohol abuse Depression Father No problems noted. Sister , 2 MONTHS OLD No problems noted. Maternal Grandmother Asthma Daughter No problems noted. Daughter No problems noted. Paternal Grandfather Alcohol abuse Social History Smoking/Tobacco Use Status: Former Tobacco Use Tobacco: How many years used: 10 Smokeless tobacco user: chewing tobacco Quit status: has quit before Second Hand Exposure: No Smoking risk assessment performed?: Yes Alcohol Intake: never Drug use: Never Substance use type: does not use Caregiver/Support person: No Foster care: No Household members: children Housing: apartment Number of Children: 2 number of grandchildren: 0 Communication Needs: None Education Level: college current occupation: [employer] Pets and animals: Yes Pets and animals: dog(s) Sexually active: Yes Do you think of yourself as: straight/heterosexual Current gender identity: female What is your relationship status?: never How often do you talk on the phone with friends or family?: three or more times per week How often do you get together with friends or relatives?: twice per week How often do you attend yazidi or amish services?: 1-3 times per year Do you belong to any clubs or organized social groups?: no Panel score (0-1 are the most socially isolated patients): 1 What type of physical activity do you participate in: walking, bicycling and swimming Duration: 30-45 minutes/day Frequency: 3-4 times per week Batool/Roman Catholic: None Special batool needs: No Seatbelt use: always Helmet use: Yes Helmet use: always Drive intox or ride w/intox fence post driver: No Working smoke detector in home: Yes Carbon monox detector in home: Yes Firearms in home: Yes Firearms unloaded and locked: Yes Do you feel safe at home: Yes Do you feel safe in your relationship?: Yes Female Reproductive History Menstrual control method: implanted History History 2 Para 2 Hx # Term Pregnancies Multiple births Hx # Pregnancies Ectopic pregnancies AB induced Hx Number of Living Children AB spontaneous
[2024-11-26] MEDS: Metoclopramide 10 MG TAB 20 MG PO (03:20)
== END 2024-11-26 03:29 | disposition home or self-care (01) ==
LOC: ER 11-26 03:28
PROVIDERS: Emergency Provider Student in an Organized Health Care Education/Training Program; PCP Nurse Practitioner Family
DX: J10.1 Influenza due to other identified influenza virus with other respiratory manifestations (principal); Z98.84 Bariatric surgery status; Z87.891 Personal history of nicotine dependence
CPT/HCPCS: 36415; 80053; 93005; 96365; 96366; 96375; 99284; 84132; 84703; 85025; 93010; J2765; J3480